=== PATIENT | female | born 1980 | race Caucasian/White ===

== ENCOUNTER 2018-03-26 05:12 | Inpatient (IN) | payer OTHER ==
[~2018-03-26] VITALS: Ht 167.6 cm; Wt 109.0 kg
[~2018-03-26 05:12] MED LIST: OXYC-302 PO
[2018-03-26] MEDS ORDERED: OXYTOCIN 30U/ 0.9% NaCL 500ML 500 ML IV ONE (05:17)
[2018-03-26] MEDS ORDERED: OXYTOCIN 30U/ 0.9% NaCL 500ML 500 ML IV PRN (05:17)
[2018-03-26] MEDS ORDERED: D5%-LACTATED RINGERS 1,000 ML IV SCH (05:17)
[2018-03-26] MEDS ORDERED: FENTANYL PF 100 MCG/2ML IVPush PRN (05:30)
[2018-03-26] MEDS ORDERED: CALCIUM CARBONATE 500 MG TAB.CHEW PO PRN ×2 (05:30→18:30)
[2018-03-26] MEDS ORDERED: TERBUTALINE 1 MG/ML, 1ML IVPush PRN (05:30)
[2018-03-26] MEDS ORDERED: ONDANSETRON 2MG/ML, 2ML IVPush PRN (05:30)
[2018-03-26] MEDS ORDERED: FENTANYL PF 100 MCG/2ML IV PRN (05:30)
[2018-03-26 05:34] VITALS: BP 111/58
[2018-03-26 05:52] LABS: BASOPHILS # (AUTO) 0.07 x10^3/uL (0-0.1); BASOPHILS % (AUTO) 1 % (0-1); EOSINOPHILS # (AUTO) 0.48 x10^3/uL (0-0.4); EOSINOPHILS % (AUTO) 5 % (1-7); LYMPHOCYTES # (AUTO) 1.98 x10^3/uL (1-3.4); LYMPHOCYTES % (AUTO) 19 % (22-44); MD NO; MEAN CORPUSCULAR HEMOGLOBIN 25.9 pg (27.0-34.8); MEAN CORPUSCULAR HGB CONC 32.3 g/dL (32.4-35.8); MEAN CORPUSCULAR VOLUME 80.4 fL (80-100); MEAN PLATELET VOLUME 7.4 fL (7.4-10.4); MONOCYTES # (AUTO) 0.69 x10^3/uL (0.2-0.8); MONOCYTES % (AUTO) 7 % (2-9); NEUTROPHILS # (AUTO) 7.22 x10^3/uL (1.8-6.8); NEUTROPHILS % (AUTO) 69 % (42-75); PLATELET COUNT 261 x10^3/uL (130-400); RED BLOOD COUNT 4.15 x10^6/uL (3.82-5.3); RED CELL DISTRIBUTION WIDTH 16.9 % (9.6-15.2)
[2018-03-26] MEDS ORDERED: OXYTOCIN 30U/ 0.9% NaCL 500ML 500 ML ONE ×2 (05:59→17:20)
[2018-03-26] MEDS: LACTATED RINGERS 1,000 ML IV SCH ×4 (06:12→19:28)
[2018-03-26] MEDS ORDERED: MISOPROSTOL 200 MCG TABLET ONE (06:29)
[2018-03-26] MEDS ORDERED: LIDOCAINE/PF 1%, 30ML ONE (06:29)
[2018-03-26] MEDS ORDERED: FENTANYL/BUPIV./NS/PF 125 ML EPIDCONT SCH ×2 (11:28→11:51)
[2018-03-26] MEDS: LACTATED RINGERS 1,000 ML IVBOLUS PRN ×2 (11:32→13:01)
[2018-03-26] MEDS ORDERED: FENTANYL PF 100 MCG/2ML ONE ×2 (11:33→11:52)
[2018-03-26] MEDS ORDERED: BUPIVACAINE 0.25% ONE (11:52)
[2018-03-26] MEDS ORDERED: OXYTOCIN 30U/ 0.9% NaCL 500ML 500 ML IV SCH ×2 (17:24→18:13)
[2018-03-26] MEDS ORDERED: MISOPROSTOL 200 MCG TABLET PR PRN ×2 (17:30→18:30)
[2018-03-26] MEDS ORDERED: METHYLERGONOVINE 0.2 MG/ML IM ONE (17:42)
[2018-03-26] MEDS: OXYTOCIN 30U/ 0.9% NaCL 500ML 500 ML IV SCH (18:13)
[2018-03-26] MEDS ORDERED: ONDANSETRON 2MG/ML, 2ML IV PRN (18:30)
[2018-03-26] MEDS ORDERED: ACETAMINOPHEN 325 MG TABLET PO PRN ×2 (18:30)
[2018-03-26] MEDS ORDERED: HYDROcodone/APAP 5/325 TABLET PO PRN ×2 (18:30)
[2018-03-26] MEDS ORDERED: DOCUSATE 100 MG CAPSULE PO PRN (18:30)
[2018-03-26] MEDS ORDERED: BISACODYL 10 MG SUPP PR PRN (18:30)
[2018-03-26] MEDS ORDERED: METHYLERGONOVINE 0.2 MG/ML IM PRN (19:00)
[2018-03-26] MEDS ORDERED: IBUPROFEN 600 MG TABLET ONE (19:12)
[2018-03-26] MEDS ORDERED: HYDROcodone/APAP 5/325 TABLET ONE (19:12)
[2018-03-26] MEDS: IBUPROFEN 600 MG TABLET PO PRN (19:15)
[2018-03-26] MEDS: LIOTHYRONINE 5 MCG TABLET PO SCH (19:18)
[2018-03-26] MEDS: metFORMIN 500 MG TABLET PO SCH (19:53)
[2018-03-26 21:19] VITALS: BP 126/85
[2018-03-26 23:53] VITALS: BP 112/62
[2018-03-27] MEDS: LACTATED RINGERS 1,000 ML IV SCH ×2 (03:28→04:46)
[2018-03-27 03:38] VITALS: BP 108/61
[2018-03-27] MEDS: OXYTOCIN 30U/ 0.9% NaCL 500ML 500 ML IV SCH ×2 (04:13→04:48)
[2018-03-27 05:32] LABS: BASOPHILS # (AUTO) 0.02 x10^3/uL (0-0.1); BASOPHILS % (AUTO) 0 % (0-1); EOSINOPHILS # (AUTO) 0.26 x10^3/uL (0-0.4); EOSINOPHILS % (AUTO) 2 % (1-7); LYMPHOCYTES # (AUTO) 1.82 x10^3/uL (1-3.4); LYMPHOCYTES % (AUTO) 13 % (22-44); MD NO; MEAN CORPUSCULAR HEMOGLOBIN 26.3 pg (27.0-34.8); MEAN CORPUSCULAR HGB CONC 32.2 g/dL (32.4-35.8); MEAN CORPUSCULAR VOLUME 81.7 fL (80-100); MEAN PLATELET VOLUME 7.7 fL (7.4-10.4); MONOCYTES # (AUTO) 1.05 x10^3/uL (0.2-0.8); MONOCYTES % (AUTO) 8 % (2-9); NEUTROPHILS # (AUTO) 10.56 x10^3/uL (1.8-6.8); NEUTROPHILS % (AUTO) 77 % (42-75); PLATELET COUNT 251 x10^3/uL (130-400); RED CELL DISTRIBUTION WIDTH 17.4 % (9.6-15.2)
[2018-03-27] MEDS ORDERED: LEVOTHYROXINE 75 MCG TABLET PO SCH (06:00)
[2018-03-27 07:40] VITALS: BP 107/76
[2018-03-27] MEDS: metFORMIN 500 MG TABLET PO SCH (08:05)
[2018-03-27] MEDS: LIOTHYRONINE 5 MCG TABLET PO SCH (08:05)
[2018-03-27] MEDS ORDERED: PRENATAL VIT/IRON/FA 1 EACH TABLET PO SCH (09:00)
[2018-03-27] MEDS ORDERED: LIOTHYRONINE 5 MCG TABLET PO SCH (09:00)
[2018-03-27] MEDS ORDERED: FERR324T18 PO (11:50)
[2018-03-27] MEDS ORDERED: IBUP-1222 PO (12:00)
[2018-03-27] MEDS ORDERED: DOCU-131 PO (12:01)
[2018-03-27] MEDS: IBUPROFEN 600 MG TABLET PO PRN (13:20)
== END 2018-03-27 14:08 | disposition home or self-care (01) | DRG 774 ==
LOC: LDIP 05:12 → 2NW 20:19
PROVIDERS: ADMIT Obstetrics & Gynecology; ATTEND Obstetrics & Gynecology
PROC: 10E0XZZ Delivery of Products of Conception, External Approach (ICD-10-PCS; principal; 2018-03-26)
PROC: 0HQ9XZZ Repair Perineum Skin, External Approach (ICD-10-PCS; 2018-03-26)
PROC: 10907ZC Drainage of Amniotic Fluid, Therapeutic from Products of Conception, Via Natural or Artificial Opening (ICD-10-PCS; 2018-03-26)
PROC: 3E033VJ Introduction of Other Hormone into Peripheral Vein, Percutaneous Approach (ICD-10-PCS; 2018-03-26)
PROC: 3E0R3BZ Introduction of Anesthetic Agent into Spinal Canal, Percutaneous Approach (ICD-10-PCS; 2018-03-26)
PROC: 00HU33Z Insertion of Infusion Device into Spinal Canal, Percutaneous Approach (ICD-10-PCS; 2018-03-26)
DX: O43.123 Velamentous insertion of umbilical cord, third trimester (principal); O72.1 Other immediate postpartum hemorrhage; O99.284 Endocrine, nutritional and metabolic diseases complicating childbirth; Z37.0 Single live birth; E03.9 Hypothyroidism, unspecified; Z3A.39 39 weeks gestation of pregnancy; E28.2 Polycystic ovarian syndrome; O75.89 Other specified complications of labor and delivery; E88.81 Metabolic syndrome and other insulin resistance; O70.0 First degree perineal laceration during delivery
CPT/HCPCS: 36415; 85025; 86850; 86900; J3010; J3490; J2210; J2590; J7120